=== PATIENT | male | born 1985 | race Caucasian/White ===

== ENCOUNTER 2017-07-30 00:26 | Emergency (ER) | payer OTHER ==
[~2017-07-30 00:26] MED LIST: CLIN1CAP6 OR; NAPR-576 PO; TRAM50 PO
[2017-07-30 00:28] VITALS: BP 139/87; PULSE 87; RESP 16; TEMP 98; O2SAT 97
[2017-07-30 00:53] VITALS: BP 147/97; PULSE 83; RESP 16; O2SAT 96
[2017-07-30 01:14] VITALS: O2SAT 96
[2017-07-30] MEDS ORDERED: SODIUM CHLORIDE 0.9% FLUSH 10 ML FLUSH IVF PRN (01:15)
[2017-07-30] MEDS ORDERED: ASPIRIN 81 MG CHEW TAB PO ONE (01:15)
[2017-07-30] MEDS ORDERED: MORPHINE SULFATE 4 MG/ML INJ IV PUSH ONE (01:15)
[2017-07-30 01:17] VITALS: BP_SYST 128; BP_SYST 147; BP_DIAS 86; BP_DIAS 97
--- NOTE | 2017-07-30 01:28 | RADRPT ---
EXAM DATE/TIME: 07/30/2017 01:20 [facility] COMPARISON: No previous studies available for comparison. INDICATIONS : Chest pain. MEDICAL HISTORY : None. SURGICAL HISTORY : None. ENCOUNTER: Initial ACUITY: 2 days PAIN SCORE: 10/10 LOCATION: Left chest FINDINGS: A single view of the chest demonstrates the lungs to be symmetrically prominent under aerated with bi basilar atelectatic changes are most prominent on the left. No effusion. Heart size is normal. Osseou s structures are intact. CONCLUSION: Hypoinflation with bibasilar airspace disease, most prominent on the left. This is probably atel ectatic. Vitaly Simmons MD on July 30, 2017 at 1:25 Board Certified Radiologist. This report was verified electronically.
--- NOTE | 2017-07-30 02:15 | PD ---
HPI Chief Complaint: Chest Pain Time Seen by Provider: 00:58 Travel History International Travel<30 days: No Contact w/Intl Traveler<30days: No Traveled to known affect area: No History of Present Illness HPI Patient is a 31 year old male who comes in complaining of left sided chest pain and numbness down his left arm. He says he feels shortness of breath associated with this. He says the pain has been going on for the past 3 days, but got worse today. He says it has been constant throughout the past 3 days. He denies nausea or vomiting. He has not taken anything for pain. He denies fever or chills. PFSH Past Medical History Diminished Hearing: No Kidney Stones: Yes ?: Not Past Surgical History Tonsillectomy: Yes (ADENOIDECTOMY A CHILD) Social History Alcohol Use: No Tobacco Use: Yes (STATES 1/2 PPD) Substance Use: No Allergies-Medications (Allergen,Severity, Reaction): Coded Allergies: penicillin G (Unverified Allergy, Severe, HIVES, 06/28/17) Reported Meds & Prescriptions Reported Meds & Active Scripts Active No Active Prescriptions or Reported Medications Review of Systems Except as stated in HPI: all other systems reviewed are Neg General / Constitutional: No: Fever, Chills HENT: No: Headaches, Lightheadedness Cardiovascular: Positive: Chest Pain or Discomfort Respiratory: Positive: Shortness of Breath Gastrointestinal: No: Nausea, Vomiting Musculoskeletal: No: Myalgias, Edema Skin: No Rash, No Change in Pigmentation Neurologic: No: Weakness, Dizziness Physical Exam Narrative GENERAL: Awake and alert, in no acute distress. SKIN: Focused skin assessment warm/dry. HEAD: Atraumatic. Normocephalic. EYES: Pupils equal and round. No scleral icterus. ENT: Mucous membranes pink and moist. NECK: Trachea midline. No JVD. CARDIOVASCULAR: Regular rate and rhythm. No murmur appreciated. RESPIRATORY: No accessory muscle use. Clear to auscultation. Breath sounds equal bilaterally. GASTROINTESTINAL: Abdomen soft, non-tender, nondistended. MUSCULOSKELETAL: No obvious deformities. No clubbing. No cyanosis. No edema. NEUROLOGICAL: Awake and alert. No obvious cranial nerve deficits. Motor grossly within normal limits. Normal speech. PSYCHIATRIC: Appropriate mood and affect; insight and judgment normal. Data Data Last Documented VS Vital Signs Date Time Temp Pulse Resp B/P (MAP) Pulse Ox O2 Delivery O2 Flow Rate FiO2 07/30/17 01:17 147/97 (114) 128/86 (100) 07/30/17 01:14 96 Room Air 07/30/17 00:53 83 16 07/30/17 00:28 98.0 Orders Orders Ckmb (Isoenzyme) Profile (07/30/17 01:02) Complete Blood Count With Diff (07/30/17 01:02) Comprehensive Metabolic Panel (07/30/17 01:02) Prothrombin Time / Inr (Pt) (07/30/17 01:02) Act Partial Throm Time (Ptt) (07/30/17 01:02) Troponin I (07/30/17 01:02) Chest, Single Ap (07/30/17 01:02) Ecg Monitoring (07/30/17 01:02) Bilateral Bp Monitoring (07/30/17 01:02) Iv Access Insert/Monitor (07/30/17 01:02) Oximetry (07/30/17 01:02) Oxygen Administration (07/30/17 01:02) Aspirin Chew (Aspirin Chew) (07/30/17 01:15) Morphine Inj (Morphine Inj) (07/30/17 01:15) Sodium Chloride 0.9% Flush (Ns Flush) (07/30/17 01:15) D-Dimer (07/30/17 02:05) CKMB (07/30/17 02:05) CKMB% (07/30/17 02:05) Ketorolac Inj (Toradol Inj) (07/30/17 03:30) Labs Laboratory Tests Test 07/30/17 02:05 White Blood Count 9.4 TH/MM3 Red Blood Count 4.54 MIL/MM3 Hemoglobin 13.7 GM/DL Hematocrit 40.5 % Mean Corpuscular Volume 89.2 FL Mean Corpuscular Hemoglobin 30.2 PG Mean Corpuscular Hemoglobin Concent 33.8 % Red Cell Distribution Width 13.2 % Platelet Count 191 TH/MM3 Mean Platelet Volume 7.7 FL Neutrophils (%) (Auto) 58.8 % Lymphocytes (%) (Auto) 31.9 % Monocytes (%) (Auto) 7.6 % Eosinophils (%) (Auto) 1.4 % Basophils (%) (Auto) 0.3 % Neutrophils # (Auto) 5.5 TH/MM3 Lymphocytes # (Auto) 3.0 TH/MM3 Monocytes # (Auto) 0.7 TH/MM3 Eosinophils # (Auto) 0.1 TH/MM3 Basophils # (Auto) 0.0 TH/MM3 CBC Comment DIFF FINAL Differential Comment Prothrombin Time 11.0 SEC Prothromb Time International Ratio 1.0 RATIO Activated Partial Thromboplast Time 28.0 SEC D-Dimer Quantitative (PE/DVT) 0.23 MG/L FEU Blood Urea Nitrogen 10 MG/DL Creatinine 1.12 MG/DL Random Glucose 100 MG/DL Total Protein 6.8 GM/DL Albumin 3.6 GM/DL Calcium Level 8.4 MG/DL Alkaline Phosphatase 97 U/L Aspartate Amino Transf (AST/SGOT) 16 U/L Alanine Aminotransferase (ALT/SGPT) 38 U/L Total Bilirubin 0.2 MG/DL Sodium Level 141 MEQ/L Potassium Level 3.5 MEQ/L Chloride Level 106 MEQ/L Carbon Dioxide Level 28.7 MEQ/L Anion Gap 6 MEQ/L Estimat Glomerular Filtration Rate 76 ML/MIN Total Creatine Kinase 128 U/L Creatine Kinase MB 0.6 NG/ML Troponin I LESS THAN 0.02 NG/ML MDM Medical Decision Making Medical Screen Exam Complete: Yes Emergency Medical Condition: Yes Interpretation(s) ECG shows NSR at 83, no ST elevation or depression, incomplete RBBB Differential Diagnosis Pneumonia vs costochondritis vs pneumothorax vs ACS Narrative Course Patient is a 31 year old male who comes in complaining of chest pain. Exam shows no acute abnormalities. IV established, labs sent, patient connected to the mixing machine attendant. Labs sent show no acute abnormalities. Troponin and d-dimer are negative. Chest x-ray shows no acute abnormalities. Patient given a dose of morphine for pain. Given Toradol. As the pain has been going on for 3 days, and labs are all within normal limits , I believe patient is safe for discharge at this time. He is told that we cannot be 100% sure that he is not having a cardiac issue, however it is very unlikely based on his lab results, lack of risk factors, and age. He is comfortable with discharge at this time. He is advised to take Tylenol or ibuprofen as needed for pain. Advised to quit smoking. Advised to return to the ED as needed for any worsening symptoms. Diagnosis Primary Impression: Chest pain Qualified Codes: R07.9 - Chest pain, unspecified Referrals: Giovanni Bergeron DO call for appointment Patient Instructions: Chest Pain (ED), General Instructions Additional Instructions: Follow-up with cardiology in a primary care doctor. Take Tylenol or ibuprofen as needed for pain. Tried to quit smoking. Return to the ED as needed for any worsening symptoms. Scripts No Active Prescriptions or Reported Meds Disposition: 01 DISCHARGE HOME Condition: Stable Rachel Saenz MD Jul 30, 2017 02:15
[2017-07-30 02:20] LABS: AUTOMATED NEUTROPHIL # 5.5 TH/MM3 (1.8-7.7); BASOPHIL % 0.3 % (0.0-2.0); EOSINOPHIL # 0.1 TH/MM3 (0-0.4); EOSINOPHIL % 1.4 % (0.0-4.0); HEMATOCRIT 40.5 % (39.0-51.0); HEMO FLAGS DIFF FINAL; LYMPH % 31.9 % (9.0-44.0); MEAN CELL VOLUME 89.2 FL (80.0-100.0); MEAN CORPUSCULAR HEMOGLOBIN 30.2 PG (27.0-34.0); MEAN CORPUSCULAR HGB CONC 33.8 % (32.0-36.0); MONO % 7.6 % (0.0-8.0); NEUT % 58.8 % (16.0-70.0); PLATELET COUNT 191 TH/MM3 (150-450); RED BLOOD COUNT 4.54 MIL/MM3 (4.50-5.90); RED CELL DISTRIBUTION WIDTH 13.2 % (11.6-17.2); WHITE BLOOD COUNT 9.4 TH/MM3 (4.0-11.0)
[2017-07-30 02:37] LABS: ALT (GPT) 38 U/L (12-78); ANION GAP 6 MEQ/L (5-15); AST (GOT) 16 U/L (15-37); BICARBONATE 28.7 MEQ/L (21.0-32.0); BLOOD UREA NITROGEN 10 MG/DL (7-18); CHLORIDE 106 MEQ/L (98-107); GLOMERULAR FILTRATION RATE 76 ML/MIN (>89); POTASSIUM 3.5 MEQ/L (3.5-5.1); SODIUM (NA) 141 MEQ/L (136-145)
[2017-07-30 02:41] LABS: ALKALINE PHOSPHATASE 97 U/L (45-117); CREATINE KINASE 128 U/L (39-308); TOTAL BILIRUBIN ADULT 0.2 MG/DL (0.2-1.0)
[2017-07-30 02:53] LABS: CKMB 0.6 NG/ML (0.5-3.6)
[2017-07-30 03:23] VITALS: BP 127/69; PULSE 75; RESP 16; O2SAT 98
[2017-07-30] MEDS ORDERED: KETOROLAC TROMETHAMINE 30 MG/ML (IVP) VIAL IV PUSH ONE (03:30)
--- NOTE | 2017-07-30 09:11 | EKG ---
Date Performed: 07/30/2017 Time Performed: 00:53:53 PTAGE: 31 years EKG: Sinus rhythm INCOMPLETE RIGHT BUNDLE BRANCH BLOCK BORDERLINE ECG No significant change from prior electrocardiogr am. PREVIOUS TRACING : 05/22/2011 20.26 DOCTOR: Dilip Milligan Interpretating Date/Time 07/30/2017 09:10:27
== END 2017-07-30 03:35 | disposition home or self-care (01) ==
LOC: NEPC 00:26
DX: R07.9 Chest pain, unspecified (principal); R06.02 Shortness of breath; R20.0 Anesthesia of skin; R94.31 Abnormal electrocardiogram [ECG] [EKG]; Z72.0 Tobacco use
CPT/HCPCS: 71010; 80053; 82550; 82552; 84484; 85025; 85379; 85610; 85730; 93005; 96374; 96375; J1885; J2270

== ENCOUNTER 2017-07-31 22:07 | Observation (INO) | payer BC, OTHER ==
[~2017-07-31] VITALS: Ht 180.3 cm; Wt 82.0 kg
[2017-07-31 22:18] VITALS: BP 132/88; PULSE 87; RESP 14; TEMP 98.3; O2SAT 94
--- NOTE | 2017-07-31 22:28 | PD ---
HPI Chief Complaint: Chest Pain Time Seen by Provider: 22:11 Travel History International Travel<30 days: No Contact w/Intl Traveler<30days: No Traveled to known affect area: No History of Present Illness HPI Patient is a 31-year-old male with history of tobacco abuse, presents to emergency room with complaint of chest pain. He has been having left sided chest pain for the past 4 days. He reports that the pain feels like a sharp and stabbing along with a pressure to his left chest, reports that the pain to his right and left arm. Patient reports that he was seen in emergency room yesterday for similar symptoms, chest pain never resolved, reports that he was told that if symptoms worsened to return to the emergency room. Patient reports no history of [place], hypertension or ACS in the past, he has not followed up with a white hat hacker. Reports a strong family history of [place] with sudden cardiac . Patient reports that his mother passed 60, his father passed a 55, his sister passed at 37 and his mother passed 35 all from [place]'s. He did schedule an appointment with cardiology tomorrow, reports that his pain was so severe tonight, he could not wait. [facility] Past Medical History Medical History: Denies Significant Hx Diminished Hearing: No Kidney Stones: Yes Tetanus Vaccination: > 5 Years Past Surgical History Tonsillectomy: Yes (ADENOIDECTOMY A CHILD) Social History Alcohol Use: No Tobacco Use: Yes (STATES 1/2 PPD) Substance Use: No Allergies-Medications (Allergen,Severity, Reaction): Coded Allergies: penicillin G (Unverified Allergy, Severe, HIVES, 07/31/17) Reported Meds & Prescriptions Reported Meds & Active Scripts Active No Active Prescriptions or Reported Medications Review of Systems General / Constitutional: No: Fever Eyes: No: Visual changes HENT: No: Headaches Cardiovascular: Positive: Chest Pain or Discomfort Respiratory: Positive: Shortness of Breath Gastrointestinal: No: Abdominal Pain Genitourinary: No: Dysuria Musculoskeletal: No: Pain Skin: No Rash Neurologic: No: Weakness Psychiatric: No: Depression Endocrine: No: Polydipsia Hematologic/Lymphatic: No: Easy Bruising Physical Exam Narrative GENERAL: Mild distress SKIN: Focused skin assessment warm/dry. HEAD: Atraumatic. Normocephalic. EYES: Pupils equal and round. No scleral icterus. No injection or drainage. ENT: No nasal bleeding or discharge. Mucous membranes pink and moist. NECK: Trachea midline. No JVD. CARDIOVASCULAR: Regular rate and rhythm. No murmur appreciated. RESPIRATORY: No accessory muscle use. Clear to auscultation. Breath sounds equal bilaterally. GASTROINTESTINAL: Abdomen soft, non-tender, nondistended. Hepatic and splenic margins not palpable. MUSCULOSKELETAL: No obvious deformities. No clubbing. No cyanosis. No edema. NEUROLOGICAL: Awake and alert. No obvious cranial nerve deficits. Motor grossly within normal limits. Normal speech. PSYCHIATRIC: Appropriate mood and affect; insight and judgment normal. Data Data Last Documented VS Vital Signs Date Time Temp Pulse Resp B/P (MAP) Pulse Ox O2 Delivery O2 Flow Rate FiO2 07/31/17 23:15 14 07/31/17 22:50 73 109/71 (84) 96 Room Air 07/31/17 22:18 98.3 Orders Orders Electrocardiogram (07/31/17 22:22) Ckmb (Isoenzyme) Profile (07/31/17 22:22) Complete Blood Count With Diff (07/31/17 22:22) Comprehensive Metabolic Panel (07/31/17 22:22) Prothrombin Time / Inr (Pt) (07/31/17 22:22) Act Partial Throm Time (Ptt) (07/31/17 22:22) Troponin I (07/31/17 22:22) Chest, Single Ap (07/31/17 22:22) Ecg Monitoring (07/31/17 22:22) Iv Access Insert/Monitor (07/31/17 22:22) Oximetry (07/31/17 22:22) Aspirin Chew (Aspirin Chew) (07/31/17 22:30) Sodium Chloride 0.9% Flush (Ns Flush) (07/31/17 22:30) Nitroglycerin Sl (Nitrostat Sl) (07/31/17 22:30) Sodium Chlorid 0.9% 500 Ml Inj (Ns 500 M (07/31/17 22:30) Morphine Inj (Morphine Inj) (07/31/17 23:30) Labs Laboratory Tests Test 07/31/17 22:35 White Blood Count 10.1 TH/MM3 Red Blood Count 4.48 MIL/MM3 Hemoglobin 13.7 GM/DL Hematocrit 39.8 % Mean Corpuscular Volume 88.8 FL Mean Corpuscular Hemoglobin 30.6 PG Mean Corpuscular Hemoglobin Concent 34.4 % Red Cell Distribution Width 12.9 % Platelet Count 182 TH/MM3 Mean Platelet Volume 8.4 FL Neutrophils (%) (Auto) 63.8 % Lymphocytes (%) (Auto) 27.7 % Monocytes (%) (Auto) 8.0 % Eosinophils (%) (Auto) 0.4 % Basophils (%) (Auto) 0.1 % Neutrophils # (Auto) 6.4 TH/MM3 Lymphocytes # (Auto) 2.8 TH/MM3 Monocytes # (Auto) 0.8 TH/MM3 Eosinophils # (Auto) 0.0 TH/MM3 Basophils # (Auto) 0.0 TH/MM3 CBC Comment DIFF FINAL Differential Comment Prothrombin Time 11.4 SEC Prothromb Time International Ratio 1.0 RATIO Activated Partial Thromboplast Time 27.4 SEC MDM Medical Decision Making Medical Screen Exam Complete: Yes Emergency Medical Condition: Yes Medical Record Reviewed: Yes Interpretation(s) EKG at 2240: NSR at 76bpm, qt/qtc: 378/409, no acute st or t wave changes Vital Signs Date Time Temp Pulse Resp B/P (MAP) Pulse Ox O2 Delivery O2 Flow Rate FiO2 07/31/17 22:18 98.3 87 14 132/88 (103) 94 Differential Diagnosis Differential includes ACS, arrhythmia, pneumothorax, electrolyte abnormality Narrative Course Patient is a 31-year-old male who was brought to emergency room by [facility] for evaluation of chest pain for the past 4 days. Reports the chest pain is in his left chest, reports that it radiates down his left arm. Patient was seen and evaluated yesterday in the emergency room for similar symptoms and was discharged home. Reports that his chest pain is not getting any better at this time. Patient was placed on a electronic device monitor upon arrival to ER. EKG ordered. Lab work including cardiac enzymes ordered. Xray of chest ordered as well. patient reported slight relief after 1SL nitro, bp did drop to 109/71 from 132/ 88 - cp still /, will administer IV morphine for pain Scripts No Active Prescriptions or Reported Meds Dodie Ordoñez DO Jul 31, 2017 22:28
[2017-07-31] MEDS ORDERED: ASPIRIN 81 MG CHEW TAB PO ONE (22:30)
[2017-07-31] MEDS ORDERED: SODIUM CHLORID 0.9% 500 ML INJ 500 ML IV ONE (22:30)
[2017-07-31] MEDS ORDERED: SODIUM CHLORIDE 0.9% FLUSH 10 ML FLUSH IVF PRN (22:30)
[2017-07-31 22:40] VITALS: RESP 14; O2SAT 94
[2017-07-31] MEDS: NITROGLYCERIN 0.4 MG SL 25 TABS/BTL SL SCH ×3 (22:45→22:55)
[2017-07-31 22:50] VITALS: BP 109/71; PULSE 73; RESP 18; O2SAT 96
[2017-07-31 23:02] LABS: AUTOMATED NEUTROPHIL # 6.4 TH/MM3 (1.8-7.7); BASOPHIL % 0.1 % (0.0-2.0); EOSINOPHIL % 0.4 % (0.0-4.0); HEMATOCRIT 39.8 % (39.0-51.0); HEMO FLAGS DIFF FINAL; LYMPH % 27.7 % (9.0-44.0); LYMPHOCYTE # 2.8 TH/MM3 (1.0-4.8); MEAN CELL VOLUME 88.8 FL (80.0-100.0); MEAN CORPUSCULAR HEMOGLOBIN 30.6 PG (27.0-34.0); MEAN CORPUSCULAR HGB CONC 34.4 % (32.0-36.0); NEUT % 63.8 % (16.0-70.0); PLATELET COUNT 182 TH/MM3 (150-450); RED BLOOD COUNT 4.48 MIL/MM3 (4.50-5.90); RED CELL DISTRIBUTION WIDTH 12.9 % (11.6-17.2); WHITE BLOOD COUNT 10.1 TH/MM3 (4.0-11.0)
--- NOTE | 2017-07-31 23:05 | RADRPT ---
EXAM DATE/TIME: 07/31/2017 22:32 [facility] COMPARISON: CHEST SINGLE AP, July 30, 2017, 1:20. INDICATIONS : Chest pain. MEDICAL HISTORY : None. SURGICAL HISTORY : None. ENCOUNTER: Subsequent ACUITY: 3 days PAIN SCORE: 6/10 LOCATION: Bilateral chest FINDINGS: A single portable frontal view of the chest shows a linear area of atelectasis in the left lung base. Blunting of the left costophrenic angle observed. This is new. Right lung is clear. Heart is normal in size. Mild scoliotic curvature of the spine. CONCLUSION: 1. Left basilar atelectasis. 2. Blunting of the left costophrenic angle which is new and likely relates to a tiny left effusion. Tj Alamo Jr., MD on July 31, 2017 at 23:02 Board Certified Radiologist. This report was verified electronically.
[2017-07-31 23:11] LABS: APTT (PATIENT) 27.4 SEC (24.3-30.1); PROTHROMBIN TIME - PATIENT 11.4 SEC (9.8-11.6)
[2017-07-31 23:19] LABS: ALT (GPT) 37 U/L (12-78); ANION GAP 8 MEQ/L (5-15); AST (GOT) 14 U/L (15-37); BLOOD UREA NITROGEN 10 MG/DL (7-18); CHLORIDE 107 MEQ/L (98-107); GLOMERULAR FILTRATION RATE 72 ML/MIN (>89); POTASSIUM 3.6 MEQ/L (3.5-5.1); SODIUM (NA) 142 MEQ/L (136-145)
[2017-07-31 23:23] LABS: ALKALINE PHOSPHATASE 103 U/L (45-117); CREATINE KINASE 126 U/L (39-308); TOTAL BILIRUBIN ADULT 0.3 MG/DL (0.2-1.0)
[2017-07-31] MEDS ORDERED: MORPHINE SULFATE 4 MG/ML INJ IV PUSH ONE (23:30)
[2017-07-31 23:39] VITALS: BP 98/64; PULSE 73; RESP 19; O2SAT 98
[2017-08-01] VITALS (7 sets, daily range): BP systolic 111–130; BP diastolic 61–83; PULSE 57–71; RESP 16–18; TEMP 97.9–98.1; O2SAT 95–98
[2017-08-01 03:02] LABS: CREATINE KINASE 113 U/L (39-308)
[2017-08-01 03:14] LABS: CKMB 0.6 NG/ML (0.5-3.6)
[2017-08-01 06:16] LABS: CREATINE KINASE 129 U/L (39-308)
[2017-08-01 06:28] LABS: CKMB 0.8 NG/ML (0.5-3.6)
--- NOTE | 2017-08-01 08:23 | HHI.HP ---
HPI Primary Care Physician No Primary Care Physician Chief Complaint Chest pain History of Present Illness 31 year old male with no significant medical history presents to the emergency room for further evaluation of chest pain. Onset 4 days. Location left anterior chest with radiation to left side and left scapula area. Characterized as a constant pain made worse with coughing and deep breathing. No associated symptoms of nausea, vomiting, shortness of breath, or diaphoresis. No known relieving factors. Review of Systems General: No fever, chills, or recent illness, or change in appetite. Has been in his general state of health. Works as an auto body repair and paints automobiles. HEENT: No KOTHARI, no nasal congestion or drainage, no dysphasia CV: As stated above. Continues to have chest pain with deep breathing and coughing. RESP: No SOB or recent URI. Cough x 4 days accompanied with blood tingled sputum production. GI: No nausea, vomiting, bowel changes, diarrhea, or pain. No change in appetite. : No dysuria EXT: No lower leg edema, no paraesthesias MS: No discomfort or change in ROM NEURO: No LOC PSYCH: No anxiety, depression, or situational stress Past Family Social History Allergies: Coded Allergies: penicillin G (Unverified Allergy, Severe, HIVES, 07/31/17) Past Medical History None Past Surgical History Appendectomy Reported Medications Reported Meds & Active Scripts Active No Active Prescriptions or Reported Medications Active Ordered Medications Current Medications Medications (Trade) Dose Ordered Sig/Adriana Route Start Time Stop Time Status Last Admin (NS Flush) 2 ml UNSCH PRN IVF 07/31/17 22:30 Family History Brother from [place] age 37. Sister [place] age 35. Social History No known diabetes, hypertension, or hyperlipidemia. Does not follow with a PCP. Current smoker 1/2 pack daily. Denies any alcohol or illegal drug use. 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 Past cardiac testing None Physical Exam Vital Signs Vital Signs Date Time Temp Pulse Resp B/P (MAP) Pulse Ox O2 Delivery O2 Flow Rate FiO2 08/01/17 05:49 98.0 64 18 111/61 (78) 96 08/01/17 02:50 71 08/01/17 00:58 08/01/17 00:15 98 07/31/17 23:39 73 19 98/64 (75) 98 Room Air 07/31/17 23:15 14 07/31/17 22:50 73 18 109/71 (84) 96 Room Air 07/31/17 22:40 14 94 Room Air 07/31/17 22:18 98.3 87 14 132/88 (103) 94 Physical Exam GENERAL: Alert WN, WD, NAD, male who appears older than stated age HEAD: NC AT EYES: Sclera clear, conjunctiva without injection, pupils equal and round ENT: Mucous membranes pink and moist CV: RRR, without murmur, rub, gallop, no JVD, S1-S2 no S3-S4. RESP: Clear lungs throughout bilateral, no crackles, wheeze, rhonchi, symmetrical chest rise, nonlabored, able to speak in full sentences ABD: Soft, NT, ND, no masses, positive bowel tones EXT: Pulses +24, no dependent edema MS: Normal tone 4 extremities, nontender, no obvious deformities, full range of motion NEURO: CN II through CN XII grossly intact, motor strength 5/5, gait WNL PSYCH: A+O 3, flat affect, appropriate speech, appropriate mood and affect, insight and judgment SKIN: Normal turgor, normal texture, multiple tattoos, no lesions, no rashes, brisk cap refill Laboratory Laboratory Tests Test 07/31/17 22:35 08/01/17 02:25 08/01/17 05:35 White Blood Count 10.1 Red Blood Count 4.48 Hemoglobin 13.7 Hematocrit 39.8 Mean Corpuscular Volume 88.8 Mean Corpuscular Hemoglobin 30.6 Mean Corpuscular Hemoglobin Concent 34.4 Red Cell Distribution Width 12.9 Platelet Count 182 Mean Platelet Volume 8.4 Neutrophils (%) (Auto) 63.8 Lymphocytes (%) (Auto) 27.7 Monocytes (%) (Auto) 8.0 Eosinophils (%) (Auto) 0.4 Basophils (%) (Auto) 0.1 Neutrophils # (Auto) 6.4 Lymphocytes # (Auto) 2.8 Monocytes # (Auto) 0.8 Eosinophils # (Auto) 0.0 Basophils # (Auto) 0.0 CBC Comment DIFF FINAL Differential Comment Prothrombin Time 11.4 Prothromb Time International Ratio 1.0 Activated Partial Thromboplast Time 27.4 Blood Urea Nitrogen 10 Creatinine 1.18 Random Glucose 90 Total Protein 6.9 Albumin 3.8 Calcium Level 8.3 Alkaline Phosphatase 103 Aspartate Amino Transf (AST/SGOT) 14 Alanine Aminotransferase (ALT/SGPT) 37 Total Bilirubin 0.3 Sodium Level 142 Potassium Level 3.6 Chloride Level 107 Carbon Dioxide Level 27.0 Anion Gap 8 Estimat Glomerular Filtration Rate 72 Total Creatine Kinase 126 113 129 Creatine Kinase MB 1.0 0.6 0.8 Troponin I LESS THAN 0.02 LESS THAN 0.02 LESS THAN 0.02 Result Diagram: 07/31/17223407/31/172234 Imaging Last Impressions Myocardial Perfusion Scan Nuc Med 08/01/17 0000 Signed Impressions: Service Date/Time: Tuesday, August 01, 2017 13:13 - CONCLUSION: Negative for stress-induced ischemia. RISK CATEGORY: Low (<1%% Annual Mortality Rate) Allen Adrian MD FACR Chest CT 08/01/17 0000 Signed Impressions: Service Date/Time: Tuesday, August 01, 2017 09:15 - CONCLUSION: 1. Bibasilar atelectatic changes of uncertain etiology. No associated effusions. 2. No PE. Vitaly Simmons MD Chest X-Ray 07/31/172221 Signed Impressions: Service Date/Time: Monday, July 31, 2017 22:32 - CONCLUSION: 1. Left basilar atelectasis. 2. Blunting of the left costophrenic angle which is new and likely relates to a tiny left effusion. Tj Alamo Jr., MD Course EKG Normal sinus rhythm, normal axis no ST or T-segment change Caprini VTE Risk Assessment Caprini VTE Risk Assessment: No/Low Risk (score <= 1) Caprini Risk Assessment Model Point Value = 1 Point Value = 2 Point Value = 3 Point Value = 5 Age 41-60 Minor surgery BMI > 25 kg/m2 Swollen legs Varicose veins or History of unexplained or recurrent spontaneous Oral contraceptives or hormone replacement Sepsis (< 1 month) Serious lung disease, including pneumonia (< 1 month) Abnormal pulmonary function Acute myocardial infarction Congestive heart failure (< 1 month) History of inflammatory bowel disease Medical patient at bed rest Age 61-74 Arthroscopic surgery Major open surgery (> 45 min) Laparoscopic surgery (> 45 min) Malignancy Confined to bed (> 72 hours) Immobilizing plaster cast Central venous access Age >= 75 History of VTE Family history of VTE Factor V Leiden Prothrombin [id number] Lupus anticoagulant Anticardiolipin antibodies Elevated serum homocysteine Heparin-induced thrombocytopenia Other congenital or acquired thrombophilia Stroke (< 1 month) Elective arthroplasty Hip, pelvis, or leg fracture Acute spinal cord injury (< 1 month) Prophylaxis Regimen Total Risk Factor Score Risk Level Prophylaxis Regimen 0-1 Low Early ambulation 2 Moderate Order ONE of the following: *Sequential Compression Device (SCD) *Heparin 5000 units SQ BID 3-4 Higher Order ONE of the following medications: *Heparin 5000 units SQ TID *Enoxaparin/Lovenox 40 mg SQ daily (WT < 150 kg, CrCl > 30 mL/min) *Enoxaparin/Lovenox 30 mg SQ daily (WT < 150 kg, CrCl > 10-29 mL/min) *Enoxaparin/Lovenox 30 mg SQ BID (WT < 150 kg, CrCl > 30 mL/min) AND/OR *Sequential Compression Device (SCD) 5 or more Highest Order ONE of the following medications: *Heparin 5000 units SQ TID (Preferred with Epidurals) *Enoxaparin/Lovenox 40 mg SQ daily (WT < 150 kg, CrCl > 30 mL/min) *Enoxaparin/Lovenox 30 mg SQ daily (WT < 150 kg, CrCl > 10-29 mL/min) *Enoxaparin/Lovenox 30 mg SQ BID (WT < 150 kg, CrCl > 30 mL/min) AND *Sequential Compression Device (SCD) Assessment and Plan Assessment and Plan #1 Chest pain-admitted to chest pain center. Ruled out with 3 sets of EKGs, cardiac enzymes, and monitored overnight. Seen and evaluated by Dr. Juan Carlos Carrasco. Proceed with cardiac stress testing due to strong family history of early onset cardiovascular disease. First complete CT of chest due to reported hemoptysis. Patient unable to complete a exercise stress test due to dyspnea therefore chemical stress testing ordered. #2 Tobacco use-strongly encouraged and stressed the importance of tobacco sensation. Encouraged him to quit smoking. #3 Viral syndrome-supportive measures encouraged, establish with a PCP for follow up. Instructed to return to ER for any further concerns. Strongly encouraged to establish with a PCP due to, but not limited to, early onset cardiovascular disease, possible further pulmonary testing, and a lipid panel. Katie Strong Aug 01, 2017 08:23
[2017-08-01] MEDS ORDERED: ACETAMINOPHEN 500 MG CPLT PO PRN (09:00)
[2017-08-01] MEDS ORDERED: ONDANSETRON HCL 4 MG/2 ML VIAL IV PUSH PRN (09:00)
[2017-08-01] MEDS ORDERED: NITROGLYCERIN 0.4 MG SL 25 TABS/BTL SL PRN (09:00)
[2017-08-01] MEDS ORDERED: ASPIRIN 325 MG TAB PO SCH (09:00)
[2017-08-01] MEDS ORDERED: SODIUM CHLORIDE 0.9% FLUSH 10 ML FLUSH IV FLUSH SCH (09:00)
[2017-08-01] MEDS ORDERED: KETOROLAC TROMETHAMINE 30 MG/ML (IVP) VIAL IV PUSH ONE (09:15)
[2017-08-01] MEDS ORDERED: IOHEXOL 350 MG/ML 10 ML VIAL (for RAD DIAG) IVCONTRAST ONE (09:28)
--- NOTE | 2017-08-01 09:49 | RADRPT ---
EXAM DATE/TIME: 08/01/2017 09:15 [facility] COMPARISON: No previous studies available for comparison. INDICATIONS : Left sided chest pain for four days, hemoptysis for two days. IV CONTRAST: 71 cc Omnipaque 350 (iohexol) IV RADIATION DOSE: 4.83 CTDIvol (mGy) MEDICAL HISTORY : None SURGICAL HISTORY : None. ENCOUNTER: Initial ACUITY: 4 - 6 days PAIN SCALE: 5/10 LOCATION: Left chest TECHNIQUE: Volumetric scanning of the chest was performed. Using automated exposure control and adjustment of t he mA and/or kV according to patient size, radiation dose was kept as low as reasonably achievable to obtain optimal diagnostic quality images. DICOM format image data is available electronically for review and comparison. Follow-up recommendations for detected pulmonary nodules are based at a minimum on nodule size and pa tient risk factors according to Fleischner Society Guidelines. FINDINGS: LUNGS: Bibasilar atelectatic changes dependently. Minimal pleural thickening laterally in the left upper lob e. PLEURA: Minimal, focal area pleural thickening laterally in the left upper lobe. Atelectasis with no signific ant effusion MEDIASTINUM: The heart and great vessels demonstrate no acute abnormality. There is no mediastinal or hilar lymph adenopathy. AXILLAE: Within normal limits. No lymphadenopathy. SKELETAL: Within normal limits for patient age. MISCELLANEOUS: The visualized upper abdominal organs demonstrate no acute abnormality. CONCLUSION: 1. Bibasilar atelectatic changes of uncertain etiology. No associated effusions. 2. No PE. Vitaly Simmons MD on August 01, 2017 at 9:30 Board Certified Radiologist. This report was verified electronically.
[2017-08-01] MEDS ORDERED: RESP: ALBUTEROL 2.5 MG/3 ML NEB (PRN) NEB (13:00)
[2017-08-01] MEDS ORDERED: REGADENOSON INJ 0.4 MG/5 ML SYR ONE (13:34)
--- NOTE | 2017-08-01 14:03 | EKG ---
Date Performed: 08/01/2017 Time Performed: 02:41:43 PTAGE: 31 years EKG: Sinus rhythm NORMAL ECG NO PREVIOUS TRACING DOCTOR: Juan Carlos Carrasco Interpretating Date/Time 08/01/2017 14:02:00
--- NOTE | 2017-08-01 14:05 | EKG ---
Date Performed: 07/31/2017 Time Performed: 22:40:13 PTAGE: 31 years EKG: Sinus rhythm NORMAL ECG PREVIOUS TRACING : 07/30/2017 00.53 Since previous tracing, no significant change noted DOCTOR: Juan Carlos Carrasco Interpretating Date/Time 08/01/2017 14:03:44
--- NOTE | 2017-08-01 14:06 | TR ---
Date Performed: 08/01/2017 Time Performed: 12:03:09 DOCTOR: Juan Carlos Carrasco DRUG LIST: CLINICAL HISTORY: CHEST PAIN REASON FOR TEST: REASON FOR ENDING: OBSERVATION: CONCLUSION: Anupam protocol attempted. Stopped sec to dyspnea. Lexiscan to follow. COMMENTS: Non diagnostic test due to failure to achieve target HR
--- NOTE | 2017-08-01 15:13 | RADRPT ---
EXAM DATE/TIME: 08/01/2017 13:13 [facility] COMPARISON: No previous studies available for comparison. INDICATIONS : Substernal chest pain radiating to left arm. Angina. DOSE: 25.5 mCi Tc99m Myoview at stress. 8.2 mCi Tc99m Myoview at rest. 0.4 mg Lexiscan STRESS SYMPTOMS: Dyspnea. EJECTION FRACTION: 60% MEDICAL HISTORY : None SURGICAL HISTORY : Tonsillectomy. ENCOUNTER: Initial ACUITY: 1 day PAIN SCALE: 7/10 LOCATION: Substernal chest TECHNIQUE: The patient underwent pharmacologic stress with infusion of prescribed dose. Continuous ECG tracing was monitored during stress. Gated SPECT imaging was performed after stress and conventional SPECT i maging was performed at rest. The examination was performed on a SPECT/CT scanner, both attenuation and non-corrected datasets were reviewed. FINDINGS: DISTRIBUTION: PERFUSION STUDY: The pattern of perfusion at stress is within normal limits. GATED STUDY: There is intact wall motion and thickening without hypokinetic or dyskinetic segments. CONCLUSION: Negative for stress-induced ischemia. RISK CATEGORY: Low (<1% Annual Mortality Rate) Allen Adrian MD FACR on August 01, 2017 at 15:10 Board Certified Radiologist. This report was verified electronically.
--- NOTE | 2017-08-01 15:35 | HHI.DCPOC ---
Discharge Care Plan Diagnosis: (1) Tobacco abuse (2) Atypical chest pain Goals to Promote Your Health * To prevent worsening of your condition and complications * To maintain your health at the optimal level Directions to Meet Your Goals Take your medications as prescribed Follow your dietary instruction Follow activity as directed Keep your appointments as scheduled Take your immunizations and boosters as scheduled If your symptoms worsen call your PCP, if no PCP go to Urgent Care Center or Emergency Room Smoking is Dangerous to Your Health. Avoid second hand smoke Call the 24-hour hour crisis hotline for domestic abuse at Katie Strong Aug 01, 2017 15:35
--- NOTE | 2017-08-02 18:30 | TR ---
Date Performed: 08/01/2017 Time Performed: 13:56:24 DOCTOR: Sosa England DRUG LIST: CLINICAL HISTORY: ANGINA REASON FOR TEST: Angina REASON FOR ENDING: OBSERVATION: CONCLUSION: Lexiscan stress test was performed under standard four minute protocol. Radionuclid e was injected one minute prior to ending the test. No electrocardiographic abormalities were present to suggest ischemia. Nuclear imaging and interpretation are pending. COMMENTS:
== END 2017-08-01 18:38 | disposition home or self-care (01) ==
LOC: NEPC 22:07 → NEDA 23:59 → NEPGCP 08-01 00:51
DX: R07.89 Other chest pain (principal); B34.9 Viral infection, unspecified; R04.2 Hemoptysis; Z82.49 Family history of ischemic heart disease and other diseases of the circulatory system; F17.210 Nicotine dependence, cigarettes, uncomplicated
CPT/HCPCS: 71010; 71260; 78452; 80053; 82550; 82552; 84484; 85025; 85379; 85610; 85730; 93005; 93017; 96361; 96374; 96375; 99285; A9502; G0378; J1885; J2270; J2785; J7040; Q9967

== ENCOUNTER 2018-03-01 10:58 | Emergency (ER) | payer MEDICAID, OTHER ==
[~2018-03-01] VITALS: Ht 180.3 cm; Wt 76.0 kg
[2018-03-01 11:01] VITALS: BP 124/83; PULSE 91; RESP 18; TEMP 97.9; O2SAT 97
[2018-03-01 11:11] VITALS: BP_SYST 124; BP_SYST 139; BP_DIAS 72; BP_DIAS 83; PULSE 110; RESP 15; O2SAT 97
[2018-03-01] MEDS ORDERED: SODIUM CHLORIDE 0.9% FLUSH 10 ML FLUSH IVF PRN (11:15)
--- NOTE | 2018-03-01 11:31 | PD ---
HPI Chief Complaint: Chest Pain Time Seen by Provider: 11:10 Travel History International Travel<30 days: No Contact w/Intl Traveler<30days: No Traveled to known affect area: No History of Present Illness HPI Patient is a 32-year-old male presenting to the emergency room for evaluation of left anterior wall chest pain. Patient states the pain started last night, he went to sleep and when he woke up the pain was still there. He states that his left arm feels numb but the pain does not necessarily radiate to his arm or jaw. He states the pain is a 9 out of 10, sharp and constant in nature. He denies any injury or trauma. He reports a dull headache, mild nausea and shortness of breath. Pain occurred at rest last night. Patient states this morning when he got up he passed out. This was unwitnessed. Patient denies any illicit drug use but does smoke tobacco daily. He reports a family history of heart disease stating that his brother and sister as well as his mother and father all of heart attacks. Patient reports a history of an HI in July 2017. Symptom onset was sudden, symptoms are constant in nature, symptoms are moderate in severity. PFSH Past Medical History Chest Pain: Yes Kidney Stones: Yes Tetanus Vaccination: > 5 Years Influenza Vaccination: Yes Past Surgical History Tonsillectomy: Yes (ADENOIDECTOMY A CHILD) Family History Family Myocardial Infarction: Yes (FATHER AND MOTHER HAD HI) Social History Alcohol Use: No Tobacco Use: Yes Substance Use: No Allergies-Medications (Allergen,Severity, Reaction): Coded Allergies: penicillin G (Unverified Allergy, Severe, HIVES, 03/01/18) Reported Meds & Prescriptions Reported Meds & Active Scripts Active No Active Prescriptions or Reported Medications Review of Systems Except as stated in HPI: all other systems reviewed are Neg General / Constitutional: No: Fever Eyes: No: Blurred Vision HENT: Positive: Headaches Cardiovascular: Positive: Chest Pain or Discomfort Respiratory: Positive: Shortness of Breath Gastrointestinal: Positive: Nausea, No: Abdominal Pain Musculoskeletal: No: Myalgias Neurologic: Positive: Syncope Physical Exam Narrative GENERAL: Well-developed, well-nourished, alert male. Presenting in no acute distress. SKIN: Warm and dry. HEAD: Atraumatic. Normocephalic. EYES: Pupils equal and round. No scleral icterus. No injection or drainage. ENT: No nasal bleeding or discharge. Mucous membranes pink and moist. NECK: Trachea midline. No JVD. CARDIOVASCULAR: Regular rate and rhythm. RESPIRATORY: No accessory muscle use. Diminished breath sounds in bases. GASTROINTESTINAL: Abdomen soft, non-tender, nondistended. Hepatic and splenic margins not palpable. MUSCULOSKELETAL: Extremities without clubbing, cyanosis, or edema. No obvious deformities. NEUROLOGICAL: Awake and alert. No obvious cranial nerve deficits. Motor grossly within normal limits. Five out of 5 muscle strength in the arms and legs. Normal speech. PSYCHIATRIC: Appropriate mood and affect; insight and judgment normal. Data Data Last Documented VS Vital Signs Date Time Temp Pulse Resp B/P (MAP) Pulse Ox O2 Delivery O2 Flow Rate FiO2 03/01/18 11:11 Nasal Cannula 2.00 03/01/18 11:11 97 03/01/18 11:11 110 15 139/72 (94) 124/83 (97) 03/01/18 11:01 97.9 Orders Orders Electrocardiogram (03/01/18 11:09) Complete Blood Count With Diff (03/01/18 11:09) Comprehensive Metabolic Panel (03/01/18 11:09) Magnesium (Mg) (03/01/18 11:09) Prothrombin Time / Inr (Pt) (03/01/18 11:09) Act Partial Throm Time (Ptt) (03/01/18 11:09) Troponin I (03/01/18 11:09) Lipase (03/01/18 11:09) Ecg Monitoring (03/01/18 11:09) Iv Access Insert/Monitor (03/01/18 11:09) Oximetry (03/01/18 11:09) Oxygen Administration (03/01/18 11:09) Sodium Chloride 0.9% Flush (Ns Flush) (03/01/18 11:15) Chest, Pa & Lat (03/01/18 11:09) Morphine Inj (Morphine Inj) (03/01/18 11:45) Ondansetron Inj (Zofran Inj) (03/01/18 11:45) Sodium Chlor 0.9% 1000 Ml Inj (Ns 1000 M (03/01/18 11:45) Labs Laboratory Tests Test 03/01/18 11:16 White Blood Count 13.1 TH/MM3 Red Blood Count 5.32 MIL/MM3 Hemoglobin 15.8 GM/DL Hematocrit 46.8 % Mean Corpuscular Volume 88.0 FL Mean Corpuscular Hemoglobin 29.7 PG Mean Corpuscular Hemoglobin Concent 33.7 % Red Cell Distribution Width 13.1 % Platelet Count 182 TH/MM3 Mean Platelet Volume 8.7 FL Neutrophils (%) (Auto) 85.1 % Lymphocytes (%) (Auto) 8.9 % Monocytes (%) (Auto) 4.8 % Eosinophils (%) (Auto) 0.8 % Basophils (%) (Auto) 0.4 % Neutrophils # (Auto) 11.2 TH/MM3 Lymphocytes # (Auto) 1.2 TH/MM3 Monocytes # (Auto) 0.6 TH/MM3 Eosinophils # (Auto) 0.1 TH/MM3 Basophils # (Auto) 0.0 TH/MM3 CBC Comment DIFF FINAL Differential Comment Prothrombin Time 10.8 SEC Prothromb Time International Ratio 1.1 RATIO Activated Partial Thromboplast Time 26.5 SEC Blood Urea Nitrogen 9 MG/DL Creatinine 1.00 MG/DL Random Glucose 96 MG/DL Total Protein 7.4 GM/DL Albumin 3.8 GM/DL Calcium Level 8.6 MG/DL Magnesium Level 2.0 MG/DL Alkaline Phosphatase 113 U/L Aspartate Amino Transf (AST/SGOT) 19 U/L Alanine Aminotransferase (ALT/SGPT) 36 U/L Total Bilirubin 0.4 MG/DL Sodium Level 140 MEQ/L Potassium Level 4.4 MEQ/L Chloride Level 105 MEQ/L Carbon Dioxide Level 28.3 MEQ/L Anion Gap 7 MEQ/L Estimat Glomerular Filtration Rate 86 ML/MIN Troponin I LESS THAN 0.02 NG/ML Lipase 218 U/L [facility] Medical Decision Making Medical Screen Exam Complete: Yes Emergency Medical Condition: Yes Medical Record Reviewed: Yes Interpretation(s) Laboratory Tests Test 03/01/18 11:16 White Blood Count 13.1 TH/MM3 Red Blood Count 5.32 MIL/MM3 Hemoglobin 15.8 GM/DL Hematocrit 46.8 % Mean Corpuscular Volume 88.0 FL Mean Corpuscular Hemoglobin 29.7 PG Mean Corpuscular Hemoglobin Concent 33.7 % Red Cell Distribution Width 13.1 % Platelet Count 182 TH/MM3 Mean Platelet Volume 8.7 FL Neutrophils (%) (Auto) 85.1 % Lymphocytes (%) (Auto) 8.9 % Monocytes (%) (Auto) 4.8 % Eosinophils (%) (Auto) 0.8 % Basophils (%) (Auto) 0.4 % Neutrophils # (Auto) 11.2 TH/MM3 Lymphocytes # (Auto) 1.2 TH/MM3 Monocytes # (Auto) 0.6 TH/MM3 Eosinophils # (Auto) 0.1 TH/MM3 Basophils # (Auto) 0.0 TH/MM3 CBC Comment DIFF FINAL Differential Comment Prothrombin Time 10.8 SEC Prothromb Time International Ratio 1.1 RATIO Activated Partial Thromboplast Time 26.5 SEC Blood Urea Nitrogen 9 MG/DL Creatinine 1.00 MG/DL Random Glucose 96 MG/DL Total Protein 7.4 GM/DL Albumin 3.8 GM/DL Calcium Level 8.6 MG/DL Magnesium Level 2.0 MG/DL Alkaline Phosphatase 113 U/L Aspartate Amino Transf (AST/SGOT) 19 U/L Alanine Aminotransferase (ALT/SGPT) 36 U/L Total Bilirubin 0.4 MG/DL Sodium Level 140 MEQ/L Potassium Level 4.4 MEQ/L Chloride Level 105 MEQ/L Carbon Dioxide Level 28.3 MEQ/L Anion Gap 7 MEQ/L Estimat Glomerular Filtration Rate 86 ML/MIN Troponin I LESS THAN 0.02 NG/ML Lipase 218 U/L Last Impressions Chest X-Ray 03/01/18 1109 Signed Impressions: Service Date/Time: Thursday, March 01, 2018 11:26 - CONCLUSION: No acute disease. Vahid Fotre MD Vital Signs Date Time Temp Pulse Resp B/P (MAP) Pulse Ox O2 Delivery O2 Flow Rate FiO2 03/01/18 11:11 Nasal Cannula 2.00 03/01/18 11:11 97 Room Air 03/01/18 11:11 110 15 139/72 (94) 97 Nasal Cannula 2.00 124/83 (97) 03/01/18 11:01 97.9 91 18 124/83 (97) 97 Differential Diagnosis ACS versus [place] versus chest wall pain versus muscle strain versus other Narrative Course Patient is a 32-year-old male presenting for evaluation of 1 day of left anterior chest wall pain. Patient's vital signs are stable, labs and imaging ordered and pending. Patient was placed on telemetry monitoring continuous pulse oximetry. IV access was established. Initial EKG was reviewed by my attending physician. Labs reviewed, no acute findings identified. CXR shows no acute disease. Pt was also seen and evaluated by Dr. Parsons. Medical records reviewed. Pt had a negative NM stress test and negative enzymes in July of 2017, despite his claim he had a heart attack. He was reassured that he did not have a heart attack at that time. Pt recently quit smoking. 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 He will be discharged with an albuterol inhaler. He is encouraged to follow up with a PCP or at the [facility]. He was encouraged to return for any new or worsening symptoms. Diagnosis Primary Impression: Atypical chest pain Referrals: [facility] Primary Care Physician Patient Instructions: Chest Pain (ED), General Instructions Additional Instructions: Follow up with a primary doctor or at the [facility] Return to the emergency department for any new or worsening symptoms Use inhaler as needed and as directed for shortness of breath/wheezing. Med/Other Pt SpecificInfo: Prescription(s) given Scripts Albuterol 8.5 GM Inh (Proair Hfa 8.5 GM Inh) 90 Mcg/Act Aer 2 PUFF INH Q4-6H Y for SHORTNESS OF BREATH, #1 INHALER 0 Refills 108 mcg/actuation Prov: Tamika Ku 03/01/18 Disposition: 01 DISCHARGE HOME Condition: Stable Tamika Ku Mar 01, 2018 11:31
[2018-03-01] MEDS ORDERED: SODIUM CHLOR 0.9% 1000 ML INJ 1,000 ML IV ONE (11:45)
[2018-03-01] MEDS ORDERED: MORPHINE SULFATE 2 MG/ML SYRINGE IV PUSH ONE (11:45)
[2018-03-01] MEDS ORDERED: ONDANSETRON HCL 4 MG/2 ML VIAL IV PUSH ONE (11:45)
[2018-03-01 11:48] LABS: AUTOMATED NEUTROPHIL # 11.2 TH/MM3 (1.8-7.7); BASOPHIL % 0.4 % (0.0-2.0); EOSINOPHIL # 0.1 TH/MM3 (0-0.4); EOSINOPHIL % 0.8 % (0.0-4.0); HEMATOCRIT 46.8 % (39.0-51.0); HEMOGLOBIN 15.8 GM/DL (13.0-17.0); LYMPH % 8.9 % (9.0-44.0); LYMPHOCYTE # 1.2 TH/MM3 (1.0-4.8); MEAN CORPUSCULAR HEMOGLOBIN 29.7 PG (27.0-34.0); MEAN CORPUSCULAR HGB CONC 33.7 % (32.0-36.0); MEAN PLATELET VOLUME 8.7 FL (7.0-11.0); MONO % 4.8 % (0.0-8.0); MONOCYTE # 0.6 TH/MM3 (0-0.9); NEUT % 85.1 % (16.0-70.0); PLATELET COUNT 182 TH/MM3 (150-450); RED BLOOD COUNT 5.32 MIL/MM3 (4.50-5.90); RED CELL DISTRIBUTION WIDTH 13.1 % (11.6-17.2); WHITE BLOOD COUNT 13.1 TH/MM3 (4.0-11.0)
[2018-03-01 11:54] LABS: INTERNATIONAL NORMALIZED RATIO 1.1 RATIO; PROTHROMBIN TIME - PATIENT 10.8 SEC (9.8-11.6)
--- NOTE | 2018-03-01 11:56 | RADRPT ---
EXAM DATE/TIME: 03/01/2018 11:26 [facility] COMPARISON: CHEST SINGLE AP, July 31, 2017, 22:32. INDICATIONS : Chest pain and left side numbness. MEDICAL HISTORY : None. SURGICAL HISTORY : Tonsillectomy. ENCOUNTER: Subsequent ACUITY: 1 day PAIN SCORE: 5/10 LOCATION: Left chest FINDINGS: PA and lateral views of the chest demonstrate the lungs to be symmetrically aerated without evidence of mass, infiltrate or effusion. The cardiomediastinal contours are unremarkable. Osseous structure s are intact. CONCLUSION: No acute disease. Vahid Forte MD on March 01, 2018 at 11:53 Board Certified Radiologist. This report was verified electronically.
[2018-03-01 12:11] LABS: ALBUMIN 3.8 GM/DL (3.4-5.0); AST (GOT) 19 U/L (15-37); BICARBONATE 28.3 MEQ/L (21.0-32.0); BLOOD UREA NITROGEN 9 MG/DL (7-18); CALCIUM 8.6 MG/DL (8.5-10.1); CHLORIDE 105 MEQ/L (98-107); GLOMERULAR FILTRATION RATE 86 ML/MIN (>89); GLUCOSE,RANDOM 96 MG/DL (74-106); SODIUM (NA) 140 MEQ/L (136-145)
[2018-03-01 12:18] LABS: ALKALINE PHOSPHATASE 113 U/L (45-117); ALT (GPT) 36 U/L (12-78); TOTAL BILIRUBIN ADULT 0.4 MG/DL (0.2-1.0); TOTAL PROTEIN 7.4 GM/DL (6.4-8.2); TROPONIN I LESS THAN 0.02 NG/ML (0.02-0.05)
[2018-03-01] MEDS ORDERED: ALBUAER3 INH (12:30)
--- NOTE | 2018-03-01 12:45 | PD ---
Data Data Last Documented VS Vital Signs Date Time Temp Pulse Resp B/P (MAP) Pulse Ox O2 Delivery O2 Flow Rate FiO2 03/01/18 11:11 Nasal Cannula 2.00 03/01/18 11:11 97 03/01/18 11:11 110 15 139/72 (94) 124/83 (97) 03/01/18 11:01 97.9 Orders Orders Electrocardiogram (03/01/18 11:09) Complete Blood Count With Diff (03/01/18 11:09) Comprehensive Metabolic Panel (03/01/18 11:09) Magnesium (Mg) (03/01/18 11:09) Prothrombin Time / Inr (Pt) (03/01/18 11:09) Act Partial Throm Time (Ptt) (03/01/18 11:09) Troponin I (03/01/18 11:09) Lipase (03/01/18 11:09) Ecg Monitoring (03/01/18 11:09) Iv Access Insert/Monitor (03/01/18 11:09) Oximetry (03/01/18 11:09) Oxygen Administration (03/01/18 11:09) Sodium Chloride 0.9% Flush (Ns Flush) (03/01/18 11:15) Chest, Pa & Lat (03/01/18 11:09) Morphine Inj (Morphine Inj) (03/01/18 11:45) Ondansetron Inj (Zofran Inj) (03/01/18 11:45) Sodium Chlor 0.9% 1000 Ml Inj (Ns 1000 M (03/01/18 11:45) Ed Discharge Order (03/01/18 12:30) Labs Laboratory Tests Test 03/01/18 11:16 White Blood Count 13.1 TH/MM3 Red Blood Count 5.32 MIL/MM3 Hemoglobin 15.8 GM/DL Hematocrit 46.8 % Mean Corpuscular Volume 88.0 FL Mean Corpuscular Hemoglobin 29.7 PG Mean Corpuscular Hemoglobin Concent 33.7 % Red Cell Distribution Width 13.1 % Platelet Count 182 TH/MM3 Mean Platelet Volume 8.7 FL Neutrophils (%) (Auto) 85.1 % Lymphocytes (%) (Auto) 8.9 % Monocytes (%) (Auto) 4.8 % Eosinophils (%) (Auto) 0.8 % Basophils (%) (Auto) 0.4 % Neutrophils # (Auto) 11.2 TH/MM3 Lymphocytes # (Auto) 1.2 TH/MM3 Monocytes # (Auto) 0.6 TH/MM3 Eosinophils # (Auto) 0.1 TH/MM3 Basophils # (Auto) 0.0 TH/MM3 CBC Comment DIFF FINAL Differential Comment Prothrombin Time 10.8 SEC Prothromb Time International Ratio 1.1 RATIO Activated Partial Thromboplast Time 26.5 SEC Blood Urea Nitrogen 9 MG/DL Creatinine 1.00 MG/DL Random Glucose 96 MG/DL Total Protein 7.4 GM/DL Albumin 3.8 GM/DL Calcium Level 8.6 MG/DL Magnesium Level 2.0 MG/DL Alkaline Phosphatase 113 U/L Aspartate Amino Transf (AST/SGOT) 19 U/L Alanine Aminotransferase (ALT/SGPT) 36 U/L Total Bilirubin 0.4 MG/DL Sodium Level 140 MEQ/L Potassium Level 4.4 MEQ/L Chloride Level 105 MEQ/L Carbon Dioxide Level 28.3 MEQ/L Anion Gap 7 MEQ/L Estimat Glomerular Filtration Rate 86 ML/MIN Troponin I LESS THAN 0.02 NG/ML Lipase 218 U/L MDM Supervised Visit with DAMIAN: Yes Narrative Course The history, exam, and medical decision-making in the associated mid-level provider note were completed with my assistance. I reviewed and agree with the findings presented. I attest that I had a [id number] encounter with the patient on the same day, and personally performed and documented my assessment and findings in the medical record. *My assessment and Findings: 32-year-old man presents to the emergency department with chest pain. History of chest pain in the past. Previous negative workup with multiple sets of enzymes and a negative stress test. Patient reports he had a "heart attack" referring this episode which is not true. Does have strong family history. No clear precipitants. No evidence of PE. States it came on while he is watching TV. He did quit smoking about 3 weeks ago, and I think that he likely has some bronchorrhea or bronchospasm from that. He looks well. Repeat workup here is negative. Will recommend outpatient follow-up. Diagnosis Primary Impression: Atypical chest pain Referrals: [facility] Primary Care Physician Patient Instructions: General Instructions, Chest Pain (ED) Additional Instruction: Follow up with a primary doctor or at the [facility] Return to the emergency department for any new or worsening symptoms Use inhaler as needed and as directed for shortness of breath/wheezing. Scripts Albuterol 8.5 GM Inh (Proair Hfa 8.5 GM Inh) 90 Mcg/Act Aer 2 PUFF INH Q4-6H Y for SHORTNESS OF BREATH, #1 INHALER 0 Refills 108 mcg/actuation Prov: Tamika Ku 03/01/18 Disposition: 01 DISCHARGE HOME Condition: Stable Peterson Parsons MD Mar 01, 2018 12:45
[2018-03-01 13:10] VITALS: BP 127/76
--- NOTE | 2018-03-02 13:33 | EKG ---
Date Performed: 03/01/2018 Time Performed: 11:15:27 PTAGE: 32 years EKG: Sinus rhythm WITH SINUS ARRHYTHMIA INCOMPLETE RIGHT BUNDLE BRANCH BLOCK BORDERLINE ECG Since the PREVIOUS TRACING , no significant change noted PREVIOUS TRACIN08/01/2017 02.41 DOCTOR: Kristopher Queen Interpretating Date/Time 03/02/2018 13:32:08
== END 2018-03-01 13:10 | disposition home or self-care (01) ==
LOC: NEPE 10:58
DX: R07.89 Other chest pain (principal); R11.0 Nausea; I45.10 Unspecified right bundle-branch block; Z87.891 Personal history of nicotine dependence
CPT/HCPCS: 71046; 80053; 83690; 83735; 84484; 85025; 85610; 85730; 93005; 96361; 96374; 96375; 99285; J2270; J2405; J7030